=== PATIENT | female | born 1985 | race Caucasian/White ===

== ENCOUNTER 2016-11-19 19:32 | Emergency (ER) | payer OTHER ==
[2016-11-19 19:39] VITALS: BP 130/56
== END 2016-11-19 20:34 | disposition home or self-care (01) ==
LOC: ED 19:32
DX: M54.12 Radiculopathy, cervical region (principal); G89.4 Chronic pain syndrome
CPT/HCPCS: J1885

== ENCOUNTER 2016-11-28 16:40 | Emergency (ER) | payer OTHER ==
[~2016-11-28] VITALS: Ht 144.8 cm; Wt 68.7 kg
[2016-11-28 18:14] VITALS: BP 131/74
== END 2016-11-28 18:14 | disposition home or self-care (01) ==
LOC: ED 16:40
DX: M54.5 Low back pain (principal)
CPT/HCPCS: J1885

== ENCOUNTER 2017-02-14 23:13 | Emergency (ER) | payer SELFPAY ==
[2017-02-15 00:53] VITALS: BP 136/66
== END 2017-02-15 00:53 | disposition home or self-care (01) ==
LOC: ED 23:13
DX: M19.011 Primary osteoarthritis, right shoulder (principal)

== ENCOUNTER 2018-02-04 19:53 | Emergency (ER) | payer SELFPAY ==
[~2018-02-04] VITALS: Ht 144.8 cm; Wt 75.7 kg
[2018-02-04 20:42] VITALS: Ht 144.8 cm; Wt 75.7 kg
[2018-02-04 21:53] VITALS: BP 156/97
== END 2018-02-04 21:53 | disposition home or self-care (01) ==
LOC: ED 19:53
DX: M54.12 Radiculopathy, cervical region (principal); M19.90 Unspecified osteoarthritis, unspecified site; Z87.828 Personal history of other (healed) physical injury and trauma

== ENCOUNTER 2020-03-25 10:27 | Emergency (ER) | payer OTHER ==
[~2020-03-25] VITALS: Ht 144.8 cm; Wt 72.1 kg
[2020-03-25 10:35] VITALS: Ht 144.8 cm; Wt 72.1 kg
[2020-03-25 12:34] VITALS: BP 121/72
== END 2020-03-25 12:20 | disposition home or self-care (01) ==
LOC: ED 10:27
DX: G56.03 Carpal tunnel syndrome, bilateral upper limbs (principal); M19.90 Unspecified osteoarthritis, unspecified site; Z98.890 Other specified postprocedural states